=== PATIENT | male | born 1980 | race Caucasian/White ===

== ENCOUNTER → 2017-10-25 | Emergency (ER) | payer OTHER ==
[~2017-10-25] VITALS: Ht 182.9 cm; Wt 93.0 kg
== END | disposition home or self-care (01) ==
LOC: ER 17:38
DX: N20.0 Calculus of kidney (principal)

== ENCOUNTER 2025-06-02 22:10 | Emergency (ER) | payer OTHER ==
[~2025-06-02] VITALS: Ht 182.9 cm; Wt 99.8 kg
[2025-06-03] MEDS ORDERED: CEFTRIAXONE SODIUM 2,000 MG VIAL IM STA (01:00)
[2025-06-03] MEDS ORDERED: KETOROLAC TROMETHAMINE 60 MG VIAL IM STA (01:00)
[2025-06-03] MEDS ORDERED: DEXAMETHASONE SODIUM PHOSP/PF 10 MG/ML VIAL IV STA (01:01)
[2025-06-03] MEDS ORDERED: LIDOCAINE HCL 1% 10ML VIAL ONE (01:49)
[2025-06-03] MEDS ORDERED: KETOROLAC TROMETHAMINE 60 MG VIAL IM ONE (01:49)
[2025-06-03] MEDS ORDERED: DEXAMETHASONE SODIUM PHOSPHATE 4 MG/ML VIAL ONE (01:49)
[2025-06-03] MEDS ORDERED: CEFTRIAXONE SODIUM 2,000 MG VIAL ONE (01:49)
[2025-06-03 03:38] LABS: BASO % 0.5 % (0.1-1.2); EOS # 0.00 (0.04-0.54); EOS % 0.0 % (0.7-7.0); LYMPH # 2.64 (1.18-3.74); LYMPH % 43.9 % (19.3-53.1); MEAN PLATELET VOLUME 10.60 fl (9.4-12.4); MONO # 0.47 (0.24-0.82); MONO % 7.8 % (4.7-12.5); NEUT # 2.86 (1.56-6.13); NEUT % 47.6 % (34.0-71.1); RED CELL DISTRIBUTION WIDTH 13.1 % (11.6-14.4)
[2025-06-03 03:56] LABS: BUN CREA RATIO 16.0 (7.0-25.0); CREATININE SERUM 1.17 mg/dL (0.70-1.30); GFR 67.72; GLUCOSE FASTING 104.0 mg/dL (65-100); OSMOLALITY SERUM 284.0 MOSM/KG (275-295)
[2025-06-03 06:13] LABS: URINE APPEARANCE Clear; URINE BILIRRUBIN Negative (NEGATIVE); URINE BLOOD Negative; URINE COLOR Yellow; URINE GLUCOSE Negative (NEGATIVE); URINE KETONE Negative (NEGATIVE); URINE LEUKOCYTE Negative; URINE NITRATE Negative; URINE PROTEIN Negative (NEGATIVE); URINE UROBILINOGEN 0.2 E.U./dl
[2025-06-03 06:17] LABS: URINE BACTERIA 21.7 uL (0.0-1933); URINE RBC 2.6 uL (0.0-20.8); URINE WBC 1.9 uL (0.0-23.2)
[2025-06-03 06:53] LABS: URINE CAST 0.14 uL (0.0-1.40); URINE CRYSTALS MODERATE /HPF; URINE EPITHELIAL CELLS 0.9 uL (0.0-38.8)
== END 2025-06-03 06:19 | disposition home or self-care (01) ==
LOC: ER 22:10
PROVIDERS: General Practice
DX: M25.572 Pain in left ankle and joints of left foot (principal); M25.571 Pain in right ankle and joints of right foot; L02.31 Cutaneous abscess of buttock; M10.9 Gout, unspecified